=== PATIENT | male | born 1970 | race Caucasian/White ===

== ENCOUNTER 2023-09-20 21:12 | Emergency (ER) | payer BC ==
[~2023-09-20] VITALS: Ht 170.2 cm; Wt 81.6 kg
[2023-09-20 21:49] VITALS: BP_SYST 200; PULSE 80; RESP 20; TEMP 97.6; O2SAT 98
[2023-09-20] MEDS: hydrALAZINE HCL 20 MG/ML VIAL IVP ONE (23:47)
[2023-09-21] MEDS: ENALAPRILAT DIHYDRATE 1.25 MG/ML VIAL IVP ONE (00:08)
[2023-09-21 00:14] LABS: BASOPHILS # (AUTO) 0.1 K/uL (0.0-0.2); BASOPHILS % (AUTO) 0.6 % (0.0-2.0); EOSINOPHILS # (AUTO) 0.3 K/uL (0.0-0.4); EOSINOPHILS % (AUTO) 3.3 % (0.0-4.0); HEMATOCRIT 35.8 % (36-54); HEMOGLOBIN 12.6 g/dL (14.0-18.0); LYMPHOCYTES # (AUTO) 2.1 K/uL (1.0-5.5); LYMPHOCYTES % (AUTO) 20.9 % (20.5-51.5); MEAN CORPUSCULAR HEMOGLOBIN 31 pg (27-31); MEAN CORPUSCULAR HGB CONC 35 % (32-36); MEAN CORPUSCULAR VOLUME 87 fL (79.0-98.0); MONOCYTES # (AUTO) 0.7 K/uL (0.0-1.0); MONOCYTES % (AUTO) 7.4 % (1.7-9.3); NEUTROPHILS # (AUTO) 6.6 K/uL (1.8-7.7); NEUTROPHILS % (AUTO) 67.8 % (40.0-70.0); PLATELET COUNT (AUTO) 185 K/uL (130-430); WHITE BLOOD COUNT (AUTO) 9.8 K/uL (4.8-10.8)
[2023-09-21 00:19] LABS: ANION GAP 9 (5-15); CALCIUM 8.6 mg/dL (8.4-11.0); CARBON DIOXIDE 28 mmol/L (23-29); CHLORIDE 101 mmol/L (98-107); CREATININE 1.38 mg/dL (0.55-1.30); GFR AFRICAN AMERICAN 69 mL/min (>90); GLUCOSE 156 mg/dL (74-106); POTASSIUM 3.6 mmol/L (3.5-5.1); SODIUM SERUM 138 mmol/L (136-145); UREA NITROGEN, BLOOD 29 mg/dL (8-21)
[2023-09-21 00:20] LABS: GFR NON AFRICAN-AMERICAN 57 mL/min (>90)
[2023-09-21] MEDS: LABETALOL HCL 20 MG/4 ML CARTRIDGE IVP ONE (01:21)
[2023-09-21 03:47] VITALS: RESP 20; TEMP 97.6; O2SAT 98
[2023-09-21] MEDS ORDERED: LISI1TAB57 PO (04:33)
[2023-09-21] MEDS ORDERED: HYDR25TA86 PO (04:33)
[2023-09-21] MEDS ORDERED: AMLO5TAB4 PO (04:33)
[2023-09-21 05:04] VITALS: BP_SYST 136; PULSE 81
== END 2023-09-21 05:02 | disposition home or self-care (01) ==
LOC: SED 21:12
DX: I12.9 Hypertensive chronic kidney disease with stage 1 through stage 4 chronic kidney disease, or unspecified chronic kidney disease (principal); N18.9 Chronic kidney disease, unspecified; Z79.899 Other long term (current) drug therapy
CPT/HCPCS: 99285; 96374; 96375 ×2; 80048; 85025; 84484; 36415; 93005; J0360